=== PATIENT | male | born 1960 | race Caucasian/White ===

== ENCOUNTER 2021-06-06 17:40 | Emergency (ER) | payer OTHER, MEDICAID ==
[~2021-06-06] VITALS: Ht 167.6 cm; Wt 100.7 kg
[2021-06-06] MEDS ORDERED: normal saline 1000ML IV soln IVB ONE ×2 (18:05)
[2021-06-06] MEDS ORDERED: naloxone 2mg/2ml inj IV ONE (18:05)
[2021-06-06] MEDS ORDERED: naloxone 0.4 mg/ml inj IV ONE (18:05)
[2021-06-06 18:24] LABS: BASOPHILS # (AUTO) 0.1 X10'3 (0-0.2); BASOPHILS % (AUTO) 0.7 % (0-1); EOSINOPHILS # (AUTO) 0.3 X10'3 (0-0.9); HEMATOCRIT 45.5 % (42.0-52.0); HEMOGLOBIN 15.1 g/dl (14.0-17.9); LYMPHOCYTES # (AUTO) 2.4 X10'3 (1.1-4.8); LYMPHOCYTES % (AUTO) 21.5 % (21-51); MEAN CORPUSCULAR HEMOGLOBIN 32.2 PG (27.0-31.0); MEAN CORPUSCULAR HGB CONC 33.2 g/dL (33.0-36.5); MEAN CORPUSCULAR VOLUME 96.8 FL (78-98); MEAN PLATELET VOLUME 8.6 FL (7.4-10.4); MONOCYTES # (AUTO) 0.9 X10'3 (0-0.9); MONOCYTES % (AUTO) 8.3 % (2-12); NEUTROPHILS # (AUTO) 7.4 X10'3 (1.8-7.7); NEUTROPHILS % (AUTO) 66.5 % (42-75); PLATELET COUNT 277 X10'3 (140-440); RED CELL DISTRIBUTION WIDTH 13.4 % (11.5-14.5); WHITE BLOOD COUNT 11.1 X10'3 (4.5-11.0)
[2021-06-06 18:43] LABS: ALANINE AMINOTRANSFERASE 20 U/L (12-78); ALBUMIN 3.5 G/DL (3.4-5.0); ALKALINE PHOSPHATASE 47 IU/L (46-116); ANION GAP 12 (8-16); ASPARTATE AMINO TRANSFERASE 17 U/L (10-37); BILIRUBIN,TOTAL 0.3 MG/DL (0.1-1.0); BLOOD UREA NITROGEN 18 MG/DL (7-18); BUN/CREATININE RATIO 18.6 (5.4-32.0); CALCIUM 8.8 MG/DL (8.5-10.1); CHLORIDE 101 MMOL/L (99-107); CREATININE 0.97 MG/DL (0.60-1.10); GLUCOSE 126 MG/DL (70-104); POTASSIUM 3.8 MMOL/L (3.5-5.1); SODIUM 140 MMOL/L (135-145); TOTAL CARBON DIOXIDE 27.5 MMOL/L (24-32); TOTAL PROTEIN 7.1 G/DL (6.4-8.2); eGFR 78 ML/MIN
[2021-06-06 18:47] LABS: TROPONIN I < 0.04 NG/ML (0.0-0.05)
[2021-06-06 18:48] LABS: ACETAMINOPHEN < 2.0 UG/ML (10-30)
[2021-06-06 18:49] LABS: ETHANOL < 0.010 GM/DL (0.0-0.010)
[2021-06-06 19:20] LABS: URINE AMPHETAMINE SCREEN NEGATIVE (Neg); URINE BARBITUATE SCREEN NEGATIVE (Neg); URINE BENZODIAZEPINES SCREEN NEGATIVE (Neg); URINE CANNABINOID SCREEN NEGATIVE (Neg); URINE COCAINE SCREEN NEGATIVE (Neg); URINE METHADONE SCREEN POSITIVE (Neg); URINE OPIATE SCREEN NEGATIVE (Neg); URINE PHENCYCLIDINE SCREEN NEGATIVE (Neg)
[2021-06-06 20:08] LABS: CLARITY,URINE CLEAR (Clear); GLUCOSE, URINE NEGATIVE (Neg); KETONES,URINE NEGATIVE (Neg); LEUKOCYTE ESTERASE ,URINE NEGATIVE (Neg); NITRITES, URINE NEGATIVE (Neg); OCCULT BLOOD,URINE SMALL (Neg); PROTEIN,URINE NEGATIVE (Neg); UROBILINOGEN,URINE 0.2 E.U/dL (0.2-1.0)
[2021-06-06 20:21] LABS: COLOR,URINE STRAW (Yellow)
[2021-06-06 21:08] LABS: UA COLLECTION TYPE FOLEY CATH
[2021-06-06 21:10] LABS: WBC,URINE NONE SEEN /HPF (0-4)
[2021-06-06 21:11] LABS: BACTERIA,URINE NONE SEEN /HPF (Neg); RBC,URINE 0-2 /HPF (0-2); SQUAMOUS EPITHELIAL CELL,UR FEW /LPF (FEW)
--- NOTE | 2021-06-07 07:22 | NUR ---
Pt moved from room 2 and placed in room 8. Pt currently calm and cooperative.
[2021-06-07] MEDS ORDERED: OXYM-21 BOTHNARES (10:01)
[2021-06-07] MEDS ORDERED: METH-603 PO (10:15)
[2021-06-07] MEDS ORDERED: BUPR150T8 PO (10:15)
[2021-06-07] MEDS ORDERED: FURO40TA4 PO (10:15)
[2021-06-07] MEDS ORDERED: IBUP-1984 PO (10:15)
[2021-06-07] MEDS ORDERED: LISI20TA28 PO (10:15)
[2021-06-07] MEDS ORDERED: HYDR2TAB28 PO (10:15)
[2021-06-07] MEDS ORDERED: AMLO-94 PO (10:15)
[2021-06-07] MEDS ORDERED: potassium Cl 20 mEq SR tablet PO SCH (10:36)
[2021-06-07] MEDS ORDERED: furosemide 40mg tablet PO SCH (11:49)
[2021-06-07] MEDS ORDERED: ibuprofen 200mg tablet PO SCH (11:51)
[2021-06-07] MEDS ORDERED: methadone 10mg tablet PO SCH (11:51)
[2021-06-07] MEDS ORDERED: lisinopril 5mg tablet PO SCH (11:52)
[2021-06-07] MEDS ORDERED: buPROPion SR 150mg tablet PO SCH (11:53)
[2021-06-07] MEDS ORDERED: amLODIPine 5mg tablet PO SCH (11:54)
--- NOTE | 2021-06-07 12:27 | NUR ---
PT D/C HOME AND WILL RESUME HOME MEDICATIONS ONCE HE IS HOME.
[2021-06-07 12:28] VITALS: BP 176/66
[2021-06-08] MEDS ORDERED: lisinopril 20mg tablet PO SCH (08:00)
== END 2021-06-07 12:30 | disposition home or self-care (01) ==
LOC: ER 17:40
DX: T43.212A Poisoning by selective serotonin and norepinephrine reuptake inhibitors, intentional self-harm, initial encounter (principal); R45.851 Suicidal ideations; R11.2 Nausea with vomiting, unspecified; Z79.899 Other long term (current) drug therapy; Y92.89 Other specified places as the place of occurrence of the external cause
CPT/HCPCS: 36415; 71045; 80053; 80305; 80320; 80329; 81001; 82140; 82948; 83605; 84145; 84484; 85025; 87040; 93005; 96374; 99291; J2310; J7030